=== PATIENT | female | born 1990 | race African-American/Black ===

== ENCOUNTER 2016-11-28 13:26 | Emergency (ER) | payer SELFPAY ==
[~2016-11-28] VITALS: Ht 167.6 cm; Wt 76.2 kg
[~2016-11-28 13:26] MED LIST: METF-312 PO; PREN-153 OR
[2016-11-28 14:01] LABS: Urine Bilirubin Negative (Negative); Urine Blood Negative /uL (Negative); Urine Color Yellow (Yellow); Urine Glucose Normal (Normal); Urine Ketone Negative (Negative); Urine Nitrite Negative (Negative); Urine RBC <1 /hpf (0 - 4); Urine Squamous Epithelial Cell FEW /hpf (<5); Urine Urobilinogen Normal (Negative); Urine pH 6.5 (5.0-8.0)
[2016-11-28] MEDS ORDERED: ONDANSETRON ODT 4 MG TAB PO ONE (16:15)
[2016-11-28 16:29] VITALS: BP 109/73
== END 2016-11-28 17:04 | disposition home or self-care (01) ==
LOC: ER 13:27
DX: O26.891 Other specified pregnancy related conditions, first trimester (principal); K52.9 Noninfective gastroenteritis and colitis, unspecified; Z3A.09 9 weeks gestation of pregnancy
CPT/HCPCS: 36415; 76801; 81001; 81025; 84702; 99285; Q0162